=== PATIENT | male | born 1965 | race Caucasian/White ===

== ENCOUNTER 2017-01-11 19:55 | Emergency (ER) | payer OTHER ==
--- NOTE | 2017-01-11 20:36 | C.PDOC ---
History Of Present Illness 51 y/o male c/o abdominal pain, worsening for the last 10 days. Denies fever, chills, nausea, vomiting. Patient reports history of non insulin dependent diabetes. Describes pain as dull, aching, non-radiating, 4/10 discomfort. Time Seen by Provider: 01/11/17 20:36 Chief Complaint (Nursing): Abdominal Pain History Per: Patient History/Exam Limitations: no limitations Onset/Duration Of Symptoms: Days Current Symptoms Are (Timing): Worse Pain Scale Rating Of: 4 Location Of Pain/Discomfort: Diffuse Radiation Of Pain To:: None Quality Of Discomfort: Dull, Aching Associated Symptoms: denies: Fever, Chills, Nausea, Vomiting Recent travel outside of the [place]: No Past Medical History Reviewed: Historical Data, Nursing Documentation, Vital Signs Vital Signs: Last Vital Signs Temp 97.7 F 01/11/17 22:05 Pulse 50 L 01/11/17 22:05 Resp 16 01/11/17 22:05 BP 106/68 01/11/17 22:05 Pulse Ox 98 01/11/17 22:05 - Medical History PMH: No Chronic Diseases Family History: States: Unknown Family Hx - Social History Hx Alcohol Use: Yes Hx Substance Use: No - Immunization History Hx Tetanus Toxoid Vaccination: No Hx Influenza Vaccination: No Hx Pneumococcal Vaccination: No Review Of Systems Constitutional: Negative for: Fever, Chills Respiratory: Negative for: Cough Gastrointestinal: Positive for: Abdominal Pain. Negative for: Nausea, Vomiting Genitourinary: Negative for: Dysuria Skin: Negative for: Rash Physical Exam - Physical Exam Appears: Non-toxic, No Acute Distress Skin: Warm, Dry Oral Mucosa: Moist Chest: Symmetrical Cardiovascular: Rhythm Regular Respiratory: No Rales, No Rhonchi, No Wheezing Gastrointestinal/Abdominal: Soft, No Tenderness, Other (tympanic to percussion) Back: No CVA Tenderness Extremity: Normal ROM, Capillary Refill (< 2 sec.) Neurological/Psych: Oriented x3, Normal Speech, Normal Cognition ED Course And Treatment - Laboratory Results Result Diagrams: 01/11/17 20:50 01/11/17 20:50 ECG: Interpreted By Me, Viewed By Me ECG Rhythm: Sinus Bradycardia (48), Nonspecific Changes O2 Sat by Pulse Oximetry: 97 (RA) Pulse Ox Interpretation: Normal Progress Note: Pepcid, labs, fluids. Reevaluation Time: 22:13 Reassessment Condition: Improved Medical Decision Making Medical Decision Making: Upon provider reevaluation patient is feeling better, is medically stable, and requires no further treatment in the ED at this time. Patient will be discharged home with Rx for Bentyl. Counseling was provided and all questions were answered regarding diagnosis and need for follow up with Ankur. There is agreement to discharge plan. Return if symptoms persist or worsen. Disposition Counseled Patient/Family Regarding: Studies Performed, Diagnosis, Need For Followup, Rx Given - Disposition Referrals: Jose Eduardo Ribeiro MD [Staff Provider] - Disposition: HOME/ ROUTINE Disposition Time: 20:36 Condition: FAIR Prescriptions: Dicyclomine [Bentyl] 10 mg PO QID #30 cap - Clinical Impression Clinical Impression: Abdominal colic - Scribe Statement The provider has reviewed the documentation as recorded by the Neidaibpavithra Lazaro Provider Scribe Attestation: All medical record entries made by the Scribe were at my direction and personally dictated by me. I have reviewed the chart and agree that the record accurately reflects my personal performance of the history, physical exam, medical decision making, and the department course for this patient. I have also personally directed, reviewed, and agree with the discharge instructions and disposition.
[2017-01-11] MEDS ORDERED: Sodium Chloride 0.9% 1,000 ML IV ONE (20:40)
[2017-01-11] MEDS ORDERED: Sodium Chloride 0.9% 1,000 ML ONE (20:46)
[2017-01-11 21:04] LABS: CHLORIDE 99 mmol/L (98-107); POTASSIUM 4.2 mmol/L (3.6-5.2); SODIUM 141 mmol/L (132-148)
[2017-01-11 21:06] LABS: ALB/GLOB RATIO 1.5 (1.0-2.1); ALKALINE PHOSPHATASE 51 U/L (38-126); AST/SGOT 30 U/L (17-59); BILIRUBIN,TOTAL 0.6 mg/dL (0.2-1.3); BLOOD UREA NITROGEN 16 mg/dL (9-20); CARBON DIOXIDE 27 mmol/L (22-30); GFR AFRICAN-AMERICAN > 60; TOTAL PROTEIN 7.2 g/dL (6.3-8.3)
[2017-01-11 21:07] LABS: ALT/SGPT 21 U/L (21-72); CALCIUM 9.1 mg/dl (8.6-10.4); GLUCOSE,RANDOM 87 mg/dL (75-110)
[2017-01-11 21:08] LABS: BASO # 0.1 K/uL (0.0-0.2); BASO % 1.4 % (0.0-2.0); EOS # 0.2 K/uL (0.0-0.7); EOS % 4.4 % (0.0-4.0); LYMPH # 2.7 K/uL (1.0-4.3); MEAN CELL VOLUME 91.2 fL (80.0-94.0); MEAN CORPUSCULAR HGB CONC 32.9 g/dL (33.0-37.0); MEAN PLATELET VOLUME 8.3 fL (7.2-11.7); MONO # 0.5 K/uL (0.0-0.8); MONO % 8.6 % (0.0-10.0); RED CELL DISTRIBUTION WIDTH 12.9 % (11.5-14.5); WHITE BLOOD COUNT 5.5 K/uL (4.8-10.8)
[2017-01-11 21:13] LABS: RBC URINE < 1 /hpf (0-3); URINE BACTERIA OCC (<OCC); URINE BILIRUBIN NEGATIVE (NEGATIVE); URINE BLOOD NEGATIVE (NEGATIVE); URINE COLOR Yellow (YELLOW); URINE GLUCOSE (UA) NORMAL (Normal); URINE KETONE NEGATIVE (NEGATIVE); URINE LEUKOCYTE ESTERASE TRACE Leu/uL (Negative); URINE PROTEIN NEGATIVE (NEGATIVE); URINE UROBILINOGEN NORMAL mg/dL (0.2-1.0); WBC URINE 4 /hpf (0-5)
[2017-01-11 21:17] LABS: INR 1.1
[2017-01-11 22:05] VITALS: BP 106/68; TEMP 97.7
[2017-01-11 22:32] VITALS: PULSE 60; RESP 19; O2SAT 98
--- NOTE | 2017-01-12 12:58 | CARD ---
APPROVED REPORT EKG Measurement Heart [id number] NM [id number] [id number] <Conclusion> Sinus bradycardia Otherwise normal ECG
== END 2017-01-11 22:31 | disposition home or self-care (01) ==
LOC: C.ER 19:55
DX: R10.84 Generalized abdominal pain (principal)
CPT/HCPCS: 80053; 81001; 82009; 83690; 85025; 85610; 85730; 93005; 96361; 96374; 99285; J7040

== ENCOUNTER 2017-09-16 02:24 | Day surgery (SDC) | payer OTHER ==
[2017-09-16] MEDS ORDERED: Sodium Chloride 0.9% 1,000 ML IV STA ×2 (02:57→02:58)
--- NOTE | 2017-09-16 03:00 | C.PDOC ---
History Of Present Illness 52yo male, presents to ED with complaints of abdominal pain, present since 8pm last night. Patient reports associated nausea and dizziness. Of note, patient states he has an umbilical hernia and was advised by his PCP to visit a surgeon 1 month ago; patient states he has not followed up with a surgeon. He denies any vomiting. No other medical complaints. Time Seen by Provider: 09/16/17 02:41 Chief Complaint (Nursing): Abdominal Pain History Per: Patient History/Exam Limitations: no limitations Onset/Duration Of Symptoms: Hrs Current Symptoms Are (Timing): Still Present Location Of Pain/Discomfort: Periumbilical Quality Of Discomfort: "Pain" Associated Symptoms: Nausea. denies: Vomiting Past Medical History Reviewed: Historical Data, Nursing Documentation, Vital Signs Vital Signs: Last Vital Signs Temp 98.2 F 09/16/17 02:32 Pulse 63 09/16/17 02:32 Resp 20 09/16/17 02:32 BP 114/69 09/16/17 02:32 Pulse Ox 95 09/16/17 05:27 - Medical History PMH: Diabetes Family History: States: Unknown Family Hx - Social History Hx Alcohol Use: Yes Hx Substance Use: No - Immunization History Hx Tetanus Toxoid Vaccination: No Hx Influenza Vaccination: No Hx Pneumococcal Vaccination: No Review Of Systems Except As Marked, All Systems Reviewed And Found Negative. Gastrointestinal: Positive for: Nausea, Abdominal Pain. Negative for: Vomiting Neurological: Positive for: Dizziness Physical Exam - Physical Exam Appears: Non-toxic, Other (uncomfortable) Skin: Normal Color Neck: Supple Cardiovascular: Rhythm Regular Respiratory: Normal Breath Sounds Gastrointestinal/Abdominal: Soft, Tenderness (diffuse periumbilical tenderness) , No Hernia Neurological/Psych: Oriented x3, Normal Speech, Normal Cognition ED Course And Treatment - Laboratory Results Result Diagrams: 09/16/17 03:07 09/16/17 03:07 O2 Sat by Pulse Oximetry: 95 Medical Decision Making Medical Decision Making: Plan: -- Amylase -- CBC -- CMP -- IV Fluids -- CT Abdomen Pelvis w/ PO & IV Contrast Time: 525 EXAM: CT Abdomen and Pelvis With Intravenous Contrast CLINICAL HISTORY: 52 years old, male; Pain; Abdominal pain; Additional info: Hernia TECHNIQUE: Axial computed tomography images of the abdomen and pelvis with intravenous contrast. All CT scans at this facility use one or more dose reduction techniques, viz.: automated exposure control; ma/kV adjustment per patient size (including targeted exams where dose is matched to indication; i.e. head); or iterative reconstruction technique. 722 images are submitted. Oral contrast was administered. Coronal and sagittal reformatted images were created and reviewed. CONTRAST: 100 mL of [id number] administered intravenously. COMPARISON: No relevant prior studies available. FINDINGS: Lower thorax: Bibasilar lingular nonspecific infiltrates are present, consistent with atelectasis or pneumonia. Small hiatal hernia. ABDOMEN: Liver: Enlarged fatty liver. Gallbladder and bile ducts: Contracted gallbladder with mild gallbladder wall, as. Pancreas: Unremarkable. No mass. No ductal dilation. Spleen: Unremarkable. No splenomegaly. Adrenals: Unremarkable. No mass. Kidneys and ureters: Right renal cysts. Bilateral perinephric scarring may be a sequela of infection, inflammation or aging. No hydronephrosis. Stomach and bowel: Diverticulosis. Moderate amount of stool in the colon. No obstruction. No mucosal thickening. Appendix: There is prominent appendix measuring 1.3 cm with surrounding inflammatory change without appendicolith representing early acute appendicitis. PELVIS: Bladder: Partially distended bladder with bladder wall thickening. Correlation with urinalysis is recommended only if clinical cystitis is suspected. Reproductive: Enlarged prostate with calcifications. ABDOMEN and PELVIS: Intraperitoneal space: Unremarkable. No free air. No significant fluid collection. Bones/joints: No acute fracture. No dislocation. Soft tissues: Unremarkable. Vasculature: Unremarkable. No abdominal aortic aneurysm. Lymph nodes: Unremarkable. No enlarged lymph nodes. IMPRESSION: 1. There is prominent appendix measuring 1.3 cm with surrounding inflammatory change without appendicolith representing early acute appendicitis. Disposition - Disposition Disposition: HOSPITALIZED Disposition Time: 05:35 Condition: STABLE Forms: [facility] ([place] Citizen) - Clinical Impression Clinical Impression: Appendicitis - Scribe Statement The provider has reviewed the documentation as recorded by the Carley Edouard Provider Attestation: All medical record entries made by the Carley were at my direction and personally dictated by me. I have reviewed the chart and agree that the record accurately reflects my personal performance of the history, physical exam, medical decision making, and the department course for this patient. I have also personally directed, reviewed, and agree with the discharge instructions and disposition.
[2017-09-16] MEDS ORDERED: Sodium Chloride 0.9% 1,000 ML ONE (03:09)
[2017-09-16] MEDS ORDERED: Iohexol 240 (50 ml) ONE (03:10)
[2017-09-16 03:12] LABS: BASO # 0.1 K/uL (0.0-0.2); BASO % 0.7 % (0.0-2.0); EOS # 0.1 K/uL (0.0-0.7); EOS % 1.1 % (0.0-4.0); HEMATOCRIT 45.2 % (35.0-51.0); LYMPH # 1.1 K/uL (1.0-4.3); LYMPH % 9.3 % (20.0-40.0); MEAN CELL VOLUME 91.3 fL (80.0-94.0); MEAN CORPUSCULAR HEMOGLOBIN 31.1 pg (27.0-31.0); MEAN CORPUSCULAR HGB CONC 34.1 g/dL (33.0-37.0); MEAN PLATELET VOLUME 8.1 fL (7.2-11.7); MONO # 0.6 K/uL (0.0-0.8); MONO % 5.7 % (0.0-10.0); PLATELET COUNT 210 K/uL (130-400); RED CELL DISTRIBUTION WIDTH 12.6 % (11.5-14.5); WHITE BLOOD COUNT 11.3 K/uL (4.8-10.8)
[2017-09-16 03:30] LABS: ALKALINE PHOSPHATASE 61 U/L (38-126); ALT/SGPT 46 U/L (21-72); AMYLASE 55 U/L (30-110); AST/SGOT 27 U/L (17-59); BILIRUBIN,TOTAL 0.9 mg/dL (0.2-1.3); BLOOD UREA NITROGEN 14 mg/dL (9-20); CALCIUM 8.6 mg/dl (8.6-10.4); CARBON DIOXIDE 30 mmol/L (22-30); CHLORIDE 100 mmol/L (98-107); GFR AFRICAN-AMERICAN > 60; GLUCOSE,RANDOM 206 mg/dL (75-110); POTASSIUM 3.8 mmol/L (3.6-5.2); SODIUM 138 mmol/L (132-148); TOTAL PROTEIN 8.1 g/dL (6.3-8.3)
[2017-09-16 03:52] LABS: EOSINOPHIL 1 % (0-4); NEUTROPHIL 83 % (50-75); TOTAL CELLS COUNTED 100
[2017-09-16] MEDS ORDERED: Iodixanol 320 MG/ML 100 ML BOTTLE IV ONE (04:32)
--- NOTE | 2017-09-16 05:22 | CT ---
EXAM: CT Abdomen and Pelvis With Intravenous Contrast CLINICAL HISTORY: 52 years old, male; Pain; Abdominal pain; Additional info: Hernia TECHNIQUE: Axial computed tomography images of the abdomen and pelvis with intravenous contrast. All CT scans at this facility use one or more dose reduction techniques, viz.: automated exposure control; ma/kV adjustment per patient size (including targeted exams where dose is matched to indication; i.e. head); or iterative reconstruction technique. 722 images are submitted. Oral contrast was administered. Coronal and sagittal reformatted images were created and reviewed. CONTRAST: 100 mL of [id number] administered intravenously. COMPARISON: No relevant prior studies available. FINDINGS: Lower thorax: Bibasilar lingular nonspecific infiltrates are present, consistent with atelectasis or pneumonia. Small hiatal hernia. ABDOMEN: Liver: Enlarged fatty liver. Gallbladder and bile ducts: Contracted gallbladder with mild gallbladder wall, as. Pancreas: Unremarkable. No mass. No ductal dilation. Spleen: Unremarkable. No splenomegaly. Adrenals: Unremarkable. No mass. Kidneys and ureters: Right renal cysts. Bilateral perinephric scarring may be a sequela of infection, inflammation or aging. No hydronephrosis. Stomach and bowel: Diverticulosis. Moderate amount of stool in the colon. No obstruction. No mucosal thickening. Appendix: There is prominent appendix measuring 1.3 cm with surrounding inflammatory change without appendicolith representing early acute appendicitis. PELVIS: Bladder: Partially distended bladder with bladder wall thickening. Correlation with urinalysis is recommended only if clinical cystitis is suspected. Reproductive: Enlarged prostate with calcifications. ABDOMEN and PELVIS: Intraperitoneal space: Unremarkable. No free air. No significant fluid collection. Bones/joints: No acute fracture. No dislocation. Soft tissues: Unremarkable. Vasculature: Unremarkable. No abdominal aortic aneurysm. Lymph nodes: Unremarkable. No enlarged lymph nodes. IMPRESSION: 1. There is prominent appendix measuring 1.3 cm with surrounding inflammatory change without appendicolith representing early acute appendicitis.
[2017-09-16] MEDS ORDERED: Piperacillin/Tazobact 3.375 GM in Sodium Chloride 100 ML IVPB STA (05:30)
[2017-09-16] MEDS ORDERED: Piperacillin/Tazobact 3.375 gm 100 ML IVPB ONE (06:02)
--- NOTE | 2017-09-16 06:19 | CP.PCM.CON ---
History of Present Illness - History of Present Illness History of Present Illness: HISTORY AND PHYSICAL General Surgery Consult Note for Dr. Barkley This is a 52M with a PMH of DM and no PSH presents with abdominal pain that began at 8pm. He thought it would be settled by eating however this mad his abdominal pain worse. It started off generalized and then localized to the lower abdomen. He reports he had an episode of abdominal pain years ago. He reports that he was diagnosed with an umbilical hernia earlier this year and thought that it was the cause of his pain. In the ED he had a CT scan that was significant for an early appendicitis with inflammatory changes. He denies any fevers, chills, chest pain or SOB. PMH: DM PSH: none ALL: None Social:Denies Tobacco, ETOH, or drugs Review of Systems - Constitutional Constitutional: absent: Anorexia, Chills - EENT Eyes: absent: Blind Spots - Cardiovascular Cardiovascular: absent: Chest Pain, Dyspnea - Respiratory Respiratory: absent: Cough, Dyspnea, Dyspnea on Exertion - Gastrointestinal Gastrointestinal: Abdominal Pain. absent: Bloating, Diarrhea, Nausea, Vomiting - Neurological Neurological: absent: Syncope - Endocrine Endocrine: absent: Increase in Ring/Shoe/Hat Size Past Patient History - Past Social History Smoking Status: Never Smoked - ENDOCRINE/METABOLIC Hx Diabetes Mellitus Type 1: Yes - PSYCHIATRIC Hx Substance Use: No Meds Allergies/Adverse Reactions: Allergies Allergy/AdvReac Type Severity Reaction Status Date / Time No Known Allergies Allergy Verified 09/16/17 02:30 Physical Exam - Constitutional Appears: Non-toxic, No Acute Distress - Head Exam Head Exam: ATRAUMATIC, NORMOCEPHALIC - Eye Exam Eye Exam: EOMI - ENT Exam ENT Exam: Mucous Membranes Moist - Respiratory Exam Respiratory Exam: NORMAL BREATHING PATTERN - Cardiovascular Exam Cardiovascular Exam: REGULAR RHYTHM - GI/Abdominal Exam GI & Abdominal Exam: Hernia, Soft, Tenderness. absent: Distended, Guarding, Rigid - Neurological Exam Neurological exam: Alert, Oriented x3 - Psychiatric Exam Psychiatric exam: Normal Affect, Normal Mood - Skin Skin Exam: Dry, Intact Results - Vital Signs Recent Vital Signs: Last Vital Signs Temp 98.2 F 09/16/17 02:32 Pulse 63 09/16/17 02:32 Resp 20 09/16/17 02:32 BP 114/69 09/16/17 02:32 Pulse Ox 95 09/16/17 05:34 - Labs Result Diagrams: 09/17/17 07:57 09/17/17 07:57 Labs: Laboratory Results - last 24 hr 09/16/17 09/16/17 03:07 03:07 WBC 11.3 H D RBC 4.95 Hgb 15.4 Hct 45.2 MCV 91.3 MCH 31.1 H MCHC 34.1 RDW 12.6 Plt Count 210 MPV 8.1 Neut % (Auto) 83.2 H Lymph % (Auto) 9.3 L [place] % (Auto) 5.7 Eos % (Auto) 1.1 Baso % (Auto) 0.7 Neut # 9.4 H Lymph # 1.1 [place] # 0.6 Eos # 0.1 Baso # 0.1 Neutrophils % (Manual) 83 H Band Neutrophils % 1 Lymphocytes % (Manual) 9 L Monocytes % (Manual) 6 Eosinophils % (Manual) 1 Platelet Estimate Normal Sodium 138 Potassium 3.8 Chloride 100 Carbon Dioxide 30 Anion Gap 11 BUN 14 Creatinine 0.8 Est GFR ( Amer) > 60 Est GFR (Non-Af Amer) > 60 Random Glucose 206 H Calcium 8.6 Total Bilirubin 0.9 AST 27 ALT 46 Alkaline Phosphatase 61 Total Protein 8.1 Albumin 4.1 Globulin 4.0 H Albumin/Globulin Ratio 1.0 Amylase 55 Assessment & Plan - Assessment and Plan (Free Text) Assessment: This is a 52M diabetic presenting with an acute appendicitis NPO IVF EKG CXR Coags ABX OR Discuss with Dr. Rubia Elias PGY2
[2017-09-16] MEDS ORDERED: Sodium Chloride 0.9% 1,000 ML IV SCH (06:30)
[2017-09-16 06:57] LABS: INR 1.1
--- NOTE | 2017-09-16 07:43 | RAD ---
Chest x-ray single frontal view History: Preoperative evaluation. Comparison: None available. Findings: Bibasilar breast shadows. No focal infiltrate or effusion. Heart size within normal limits. Degenerative changes in the spine. Impression: No focal infiltrate or effusion.
[2017-09-16] MEDS: metroNIDAZOLE IV 500 mg/100 ml 500 MG/100 ML BAG IVPB SCH ×2 (08:36→15:32)
[2017-09-16] MEDS ORDERED: Bupivacaine-Epi 0.5%-1:200,000 PF Inj IJ ONE (10:47)
[2017-09-16] MEDS ORDERED: Lactated Ringer's 1,000 ML IV ONE (12:53)
[2017-09-16] MEDS ORDERED: Propofol 10 mg/ml Inj (20 ML) ONE (12:55)
[2017-09-16] MEDS ORDERED: Etomidate 20 mg/10ml Inj IV ONE (13:16)
[2017-09-16] MEDS ORDERED: ePHEDrine 50 mg/ml Inj ONE (13:19)
[2017-09-16] MEDS ORDERED: HYDROmorphone 0.5 mg/0.5 ml ISec IVP PRN (13:29)
[2017-09-16] MEDS ORDERED: Esmolol 100 mg/10ml Inj IV ONE (13:40)
[2017-09-16] MEDS ORDERED: Neostigmine Methylsulfate 3mg/3ml Syringe IV ONE (13:44)
--- NOTE | 2017-09-16 14:01 | PCM.SURG1 ---
Surgeon's Initial Post Op Note - Surgeon's Notes Surgeon: Dr. Barkley Public Health Outreach Worker: Dr. Baugh PGY1 Type of Anesthesia: General Endo, Local Anesthesia Administered By: Dr. Bethea Pre-Operative Diagnosis: Appendicitis. Umbilical Hernia Operative Findings: See operative report Post-Operative Diagnosis: Acute appendicitis. Umbilical Hernia Operation Performed: Laparascopic Appendectomy; Umbilical Hernia repair Specimen/Specimens Removed: Appendix; Hernia Sac Estimated Blood Loss: EBL {In ML}: 10 Blood Products Given: N/A Drains Used: No Drains Post-Op Condition: Good Date of Surgery/Procedure: 09/16/17 Time of Surgery/Procedure: 14:01
[2017-09-16] MEDS ORDERED: Sodium Chloride 0.9% 1,000 ML IV ONE (15:36)
[2017-09-16] MEDS: Lactated Ringer's 1,000 ML IV SCH (17:45)
[2017-09-16] MEDS: Benzocaine/Menthol (Cepacol) Lozenge MT PRN (18:14)
[2017-09-16] MEDS: Piperacill/Tazo 3.375gm in Dex 3.375 GM/50 ML BAG IVPB SCH ×2 (18:14→22:42)
[2017-09-16] MEDS: HYDROmorphone 0.5 mg/0.5 ml ISec IVP PRN (18:21)
[2017-09-17 01:18] VITALS: BP 145/78; PULSE 83; RESP 20; TEMP 98.9; O2SAT 95
[2017-09-17] MEDS: HYDROmorphone 0.5 mg/0.5 ml ISec IVP PRN ×2 (01:42→10:23)
[2017-09-17] MEDS: Lactated Ringer's 1,000 ML IV SCH (05:00)
[2017-09-17] MEDS: Piperacill/Tazo 3.375gm in Dex 3.375 GM/50 ML BAG IVPB SCH ×2 (05:01→10:42)
[2017-09-17 08:18] LABS: BASO # 0.1 K/uL (0.0-0.2); EOS # 0.1 K/uL (0.0-0.7); EOS % 1.6 % (0.0-4.0); HEMATOCRIT 40.7 % (35.0-51.0); LYMPH # 2.1 K/uL (1.0-4.3); LYMPH % 24.9 % (20.0-40.0); MEAN CELL VOLUME 91.3 fL (80.0-94.0); MEAN CORPUSCULAR HEMOGLOBIN 31.4 pg (27.0-31.0); MEAN CORPUSCULAR HGB CONC 34.4 g/dL (33.0-37.0); MEAN PLATELET VOLUME 7.9 fL (7.2-11.7); MONO # 0.7 K/uL (0.0-0.8); MONO % 8.8 % (0.0-10.0); RED CELL DISTRIBUTION WIDTH 12.8 % (11.5-14.5); WHITE BLOOD COUNT 8.4 K/uL (4.8-10.8)
[2017-09-17 08:45] LABS: ALB/GLOB RATIO 1.4 (1.0-2.1); ALKALINE PHOSPHATASE 42 U/L (38-126); ALT/SGPT 38 U/L (21-72); AST/SGOT 20 U/L (17-59); BILIRUBIN,TOTAL 1.8 mg/dL (0.2-1.3); BLOOD UREA NITROGEN 10 mg/dL (9-20); CALCIUM 7.6 mg/dl (8.6-10.4); CARBON DIOXIDE 31 mmol/L (22-30); CHLORIDE 101 mmol/L (98-107); GFR AFRICAN-AMERICAN > 60; GLUCOSE,RANDOM 125 mg/dL (75-110); POTASSIUM 3.6 mmol/L (3.6-5.2); SODIUM 138 mmol/L (132-148)
[2017-09-17 08:53] LABS: TOTAL PROTEIN 7.1 g/dL (6.3-8.3)
--- NOTE | 2017-09-17 09:06 | OP ---
PROCEDURE DATE: 09/16/2017 PREOPERATIVE DIAGNOSIS: Acute appendicitis. POSTOPERATIVE DIAGNOSIS: Acute appendicitis. PROCEDURE PERFORMED: Laparoscopic appendectomy. FINDINGS: The appendix is markedly inflamed, was adherent at the very elongated tip. There was no gross perforation. There was no fluid in the peritoneal cavity. There was also an incarcerated supraumbilical hernia. DESCRIPTION OF PROCEDURE: Under general anesthesia, patient was prepared and draped in the usual sterile fashion. Marcaine with epinephrine was injected in the supraumbilical area, where the hernia was. The shaft was then dissected free, dissecting above the skin and going all the way down into the neck. The incarcerated omental tissue was then excised secondary to peritoneal cavity with no bleeding. The opening in the fascia was about 1 cm in diameter. This was utilized with the 12-mm trocar and then CO2 was insufflated. Under direct vision, a 5-mm suprapubic port and then a 5-mm left lower quadrant port was then inserted. The patient was placed in the Trendelenburg position and turned over towards the left side. The appendix was partially mobilized by dissecting the adhesions. The mesoappendix was then serially sealed with the stapler and cut and it was then transected with the aide of the same machine. The appendix with the mesoappendix was then placed in the EndoCatch and was extracted through the umbilical port. The area was irrigated with a large amount of saline solution. Irrigating fluid was suctioned out. No bleeding was noted at the end of this procedure. CO2 was allowed to escape from the peritoneal cavity, trocars removed, and the wound was closed in a routine fashion. Estimated blood loss was about 15 mL. No complications. Nima Barkley MD
[2017-09-17] MEDS ORDERED: HYDROmorphone 1 mg/ml ISec IVP PRN (10:14)
--- NOTE | 2017-09-17 10:26 | CP.PCM.DIS ---
Provider - Provider Date of Admission: 09/16/17 05:32 Attending physician: Nima Barkley MD Primary care physician: Dr. Barkley-General surgery Consults: None Time Spent in preparation of Discharge (in minutes): 35 Diagnosis - Discharge Diagnosis (1) S/P appendectomy Status: Acute (2) Umbilical hernia Status: Acute (3) History of umbilical hernia repair Status: Acute Hospital Course - Lab Results Lab Results: Most Recent Lab Values WBC 8.4 K/uL (4.8-10.8) 09/17/17 07:57 RBC 4.45 Mil/uL (4.40-5.90) 09/17/17 07:57 Hgb 14.0 g/dL (12.0-18.0) 09/17/17 07:57 Hct 40.7 % (35.0-51.0) 09/17/17 07:57 MCV 91.3 fL (80.0-94.0) 09/17/17 07:57 MCH 31.4 pg (27.0-31.0) H 09/17/17 07:57 MCHC 34.4 g/dL (33.0-37.0) 09/17/17 07:57 RDW 12.8 % (11.5-14.5) 09/17/17 07:57 Plt Count 186 K/uL (130-400) 09/17/17 07:57 MPV 7.9 fL (7.2-11.7) 09/17/17 07:57 Neut % (Auto) 63.7 % (50.0-75.0) 09/17/17 07:57 Lymph % (Auto) 24.9 % (20.0-40.0) 09/17/17 07:57 [place] % (Auto) 8.8 % (0.0-10.0) 09/17/17 07:57 Eos % (Auto) 1.6 % (0.0-4.0) 09/17/17 07:57 Baso % (Auto) 1.0 % (0.0-2.0) 09/17/17 07:57 Neut # 5.4 K/uL (1.8-7.0) 09/17/17 07:57 Lymph # 2.1 K/uL (1.0-4.3) 09/17/17 07:57 [place] # 0.7 K/uL (0.0-0.8) 09/17/17 07:57 Eos # 0.1 K/uL (0.0-0.7) 09/17/17 07:57 Baso # 0.1 K/uL (0.0-0.2) 09/17/17 07:57 Neutrophils % (Manual) 83 % (50-75) H 09/16/17 03:07 Band Neutrophils % 1 % (0-2) 09/16/17 03:07 Lymphocytes % (Manual) 9 % (20-40) L 09/16/17 03:07 Monocytes % (Manual) 6 % (0-10) 09/16/17 03:07 Eosinophils % (Manual) 1 % (0-4) 09/16/17 03:07 Platelet Estimate Normal (NORMAL) 09/16/17 03:07 PT 12.2 SECONDS (9.7-12.2) 09/16/17 06:45 INR 1.1 09/16/17 06:45 APTT 25 SECONDS (21-34) 09/16/17 06:45 Sodium 138 mmol/L (132-148) 09/17/17 07:57 Potassium 3.6 mmol/L (3.6-5.2) 09/17/17 07:57 Chloride 101 mmol/L (98-107) 09/17/17 07:57 Carbon Dioxide 31 mmol/L (22-30) H 09/17/17 07:57 Anion Gap 10 (10-20) 09/17/17 07:57 BUN 10 mg/dL (9-20) 09/17/17 07:57 Creatinine 1.0 mg/dL (0.8-1.5) 09/17/17 07:57 Est GFR ( Amer) > 60 09/17/17 07:57 Est GFR (Non-Af Amer) > 60 09/17/17 07:57 POC Glucose (mg/dL) 118 mg/dL (65-110) H 09/17/17 06:15 Random Glucose 125 mg/dL (75-110) H 09/17/17 07:57 Calcium 7.6 mg/dl (8.6-10.4) L 09/17/17 07:57 Total Bilirubin 1.8 mg/dL (0.2-1.3) H 09/17/17 07:57 AST 20 U/L (17-59) 09/17/17 07:57 ALT 38 U/L (21-72) 09/17/17 07:57 Alkaline Phosphatase 42 U/L (38-126) 09/17/17 07:57 Total Protein 7.1 g/dL (6.3-8.3) 09/17/17 07:57 Albumin 3.5 g/dL (3.5-5.0) 09/17/17 07:57 Globulin 2.5 gm/dL (2.2-3.9) 09/17/17 07:57 Albumin/Globulin Ratio 1.4 (1.0-2.1) 09/17/17 07:57 Amylase 55 U/L (30-110) 09/16/17 03:07 - Hospital Course Hospital Course: 52M w/acute appendicitis admitted to general surgery service. Pt taken to OR for laparoscopic appendectomy with umbilical hernia repair. Pt observed overnight post op, doing well, voiding, tolerating diet, pain well controlled. Pt stable and ready for discharge home. Diagnoses: Acute appendicitis Laparoscopic appendectomy Umbilical hernia Umbilical hernia repair - Date & Time of H&P Date of H&P: 09/16/17 Time of H&P: 06:13 Discharge Exam - Head Exam Head Exam: ATRAUMATIC, NORMAL INSPECTION, NORMOCEPHALIC - Eye Exam Eye Exam: EOMI, Normal appearance Pupil Exam: NORMAL ACCOMODATION - ENT Exam ENT Exam: Mucous Membranes Moist, Normal Exam - Neck Exam Neck exam: Full Rom, Normal Inspection - Respiratory Exam Respiratory Exam: NORMAL BREATHING PATTERN, UNREMARKABLE - Cardiovascular Exam Cardiovascular Exam: REGULAR RHYTHM, +S1, +S2 - GI/Abdominal Exam GI & Abdominal Exam: Soft, Tenderness (over surgical incision sites), Unremarkable. absent: Distended, Firm, Guarding, Rigid - Extremities Exam Extremities exam: normal inspection - Neurological Exam Neurological exam: Alert, CN II-XII Intact, Oriented x3 - Psychiatric Exam Psychiatric exam: Normal Affect, Normal Mood - Skin Skin Exam: Dry, Intact, Normal Color, Warm Discharge Plan - Follow Up Plan Condition: STABLE Disposition: HOME/ ROUTINE Instructions: Appendicitis (DC), Laparoscopic Appendectomy (DC) Additional Instructions: Please follow up with Dr. Barkley in 1-2 weeks- call his office for an appointment. OK to shower tomorrow. If you have large bandages over the surgical sites, you may remove these tomorrow before you shower. You have special tape or glue over the incisions sites- do not pull this off. You may shower with either, gently wash with soap and water, do not scrub. Do not sit in a bath or hot tub. You are being given a prescription for pain medications, these are very strong, do not drink alcohol or drive while taking this medication. If the medication is too strong, you may take Tylenol. If you start to have fevers, chills or excessive bleeding from your surgical sites, please return to the hospital. You may resume all home medications as written. You may resume a regular diet. Referrals: Nima Barkley MD [Staff Provider] -
[2017-09-17] MEDS ORDERED: HYDROmorphone 1 mg/ml ISec IVP ONE (10:30)
[2017-09-17] MEDS: Benzocaine/Menthol (Cepacol) Lozenge MT PRN (10:44)
--- NOTE | 2017-09-18 07:04 | CP.PCM.HP ---
History of Present Illness - History of Present Illness History of Present Illness: History of Present Illness: General Surgery Consult Note for Dr. Barkley This is a 52M with a PMH of DM and no PSH presents with abdominal pain that began at 8pm. He thought it would be settled by eating however this mad his abdominal pain worse. It started off generalized and then localized to the lower abdomen. He reports he had an episode of abdominal pain years ago. He reports that he was diagnosed with an umbilical hernia earlier this year and thought that it was the cause of his pain. In the ED he had a CT scan that was significant for an early appendicitis with inflammatory changes. He denies any fevers, chills, chest pain or SOB. PMH: DM PSH: none ALL: None Social:Denies Tobacco, ETOH, or drugs Review of Systems - Constitutional Constitutional: absent: Anorexia, Chills - EENT Eyes: absent: Blind Spots - Cardiovascular Cardiovascular: absent: Chest Pain, Dyspnea - Respiratory Respiratory: absent: Cough, Dyspnea, Dyspnea on Exertion - Gastrointestinal Gastrointestinal: Abdominal Pain. absent: Bloating, Diarrhea, Nausea, Vomiting - Neurological Neurological: absent: Syncope - Endocrine Endocrine: absent: Increase in Ring/Shoe/Hat Size Past Patient History - Past Social History Smoking Status: Never Smoked - ENDOCRINE/METABOLIC Hx Diabetes Mellitus Type 1: Yes - PSYCHIATRIC Hx Substance Use: No Meds Allergies/Adverse Reactions: Allergies Allergy/AdvReac Type Severity Reaction Status Date / Time No Known Allergies Allergy Verified 09/16/17 02:30 Physical Exam - Constitutional Appears: Non-toxic, No Acute Distress - Head Exam Head Exam: ATRAUMATIC, NORMOCEPHALIC - Eye Exam Eye Exam: EOMI - ENT Exam ENT Exam: Mucous Membranes Moist - Respiratory Exam Respiratory Exam: NORMAL BREATHING PATTERN - Cardiovascular Exam Cardiovascular Exam: REGULAR RHYTHM - GI/Abdominal Exam GI & Abdominal Exam: Hernia, Soft, Tenderness. absent: Distended, Guarding, Rigid - Neurological Exam Neurological exam: Alert, Oriented x3 - Psychiatric Exam Psychiatric exam: Normal Affect, Normal Mood - Skin Skin Exam: Dry, Intact Results - Vital Signs Recent Vital Signs: Last Vital Signs Temp 98.2 F 09/16/17 02:32 Pulse 63 09/16/17 02:32 Resp 20 09/16/17 02:32 BP 114/69 09/16/17 02:32 Pulse Ox 95 09/16/17 05:34 - Labs Result Diagrams: 09/16/17 03:07 09/16/17 03:07 Labs: Laboratory Results - last 24 hr 09/16/17 09/16/17 03:07 03:07 WBC 11.3 H D RBC 4.95 Hgb 15.4 Hct 45.2 MCV 91.3 MCH 31.1 H MCHC 34.1 RDW 12.6 Plt Count 210 MPV 8.1 Neut % (Auto) 83.2 H Lymph % (Auto) 9.3 L Mitchell % (Auto) 5.7 Eos % (Auto) 1.1 Baso % (Auto) 0.7 Neut # 9.4 H Lymph # 1.1 Mitchell # 0.6 Eos # 0.1 Baso # 0.1 Neutrophils % (Manual) 83 H Band Neutrophils % 1 Lymphocytes % (Manual) 9 L Monocytes % (Manual) 6 Eosinophils % (Manual) 1 Platelet Estimate Normal Sodium 138 Potassium 3.8 Chloride 100 Carbon Dioxide 30 Anion Gap 11 BUN 14 Creatinine 0.8 Est GFR ( Amer) > 60 Est GFR (Non-Af Amer) > 60 Random Glucose 206 H Calcium 8.6 Total Bilirubin 0.9 AST 27 ALT 46 Alkaline Phosphatase 61 Total Protein 8.1 Albumin 4.1 Globulin 4.0 H Albumin/Globulin Ratio 1.0 Amylase 55 Assessment & Plan - Assessment and Plan (Free Text) Assessment: This is a 52M diabetic presenting with an acute appendicitis NPO IVF EKG CXR Coags ABX possible OR Discuss with Dr. Rubia Elias PGY2 Present on Admission - Present on Admission Any Indicators Present on Admission: No Past Patient History - Past Medical History & Family History Past Medical History?: Yes - Past Social History Smoking Status: Never Smoked - CARDIAC Hx Cardiac Disorders: No - PULMONARY Hx Respiratory Disorders: No - NEUROLOGICAL Hx Neurological Disorder: No - HEENT Hx HEENT Problems: No - RENAL Hx Chronic Kidney Disease: No - ENDOCRINE/METABOLIC Hx Diabetes Mellitus Type 1: Yes - HEMATOLOGICAL/ONCOLOGICAL Hx Blood Disorders: No - INTEGUMENTARY Hx Dermatological Problems: No - MUSCULOSKELETAL/RHEUMATOLOGICAL Hx Musculoskeletal Disorders: No Hx Falls: No - GASTROINTESTINAL Hx Gastrointestinal Disorders: No - GENITOURINARY/GYNECOLOGICAL Hx Genitourinary Disorders: Yes Hx Prostate Problems: Yes - PSYCHIATRIC Hx Substance Use: No - SURGICAL HISTORY Hx Surgeries: No - ANESTHESIA Hx Anesthesia: No Hx Anesthesia Reactions: No Hx Malignant Hyperthermia: No Has any member of the family had a problem w/ anesthesia?: No Meds Allergies/Adverse Reactions: Allergies Allergy/AdvReac Type Severity Reaction Status Date / Time No Known Allergies Allergy Verified 09/16/17 02:30 Results - Vital Signs Recent Vital Signs: Last Vital Signs Temp 98.9 F 09/16/17 23:20 Pulse 83 09/16/17 23:20 Resp 20 09/16/17 23:20 BP 145/78 09/16/17 23:20 Pulse Ox 95 09/16/17 23:20 - Labs Result Diagrams: 09/17/17 07:57 09/17/17 07:57 Labs: Laboratory Results - last 24 hr 09/17/17 09/17/17 09/17/17 07:57 07:57 11:43 WBC 8.4 RBC 4.45 Hgb 14.0 Hct 40.7 MCV 91.3 MCH 31.4 H MCHC 34.4 RDW 12.8 Plt Count 186 MPV 7.9 Neut % (Auto) 63.7 Lymph % (Auto) 24.9 Mitchell % (Auto) 8.8 Eos % (Auto) 1.6 Baso % (Auto) 1.0 Neut # 5.4 Lymph # 2.1 Mitchell # 0.7 Eos # 0.1 Baso # 0.1 Sodium 138 Potassium 3.6 Chloride 101 Carbon Dioxide 31 H Anion Gap 10 BUN 10 Creatinine 1.0 Est GFR ( Amer) > 60 Est GFR (Non-Af Amer) > 60 POC Glucose (mg/dL) 154 H Random Glucose 125 H Calcium 7.6 L Total Bilirubin 1.8 H AST 20 ALT 38 Alkaline Phosphatase 42 Total Protein 7.1 Albumin 3.5 Globulin 2.5 Albumin/Globulin Ratio 1.4 Assessment & Plan - Date & Time Date: 09/16/17 Time: 05:00
== END 2017-09-17 11:58 | disposition home or self-care (01) ==
LOC: C.ER 02:24 → C.SDS 05:32 → C.9E 05:32 → UNDOADMIN 05:32 → C.9E 06:46 → C.6T 06:46 → C.SDS 09-17 11:58 → UNDODISIN 09-17 14:08
PROVIDERS: ATTEND Surgery
DX: K35.80 Unspecified acute appendicitis (principal); K42.9 Umbilical hernia without obstruction or gangrene
CPT/HCPCS: 36415; 44970; 49653; 71010; 74177; 80053; 82150; 82948; 85025; 85610; 85730; 88302; 88304; 96361; 96365; 96375; 99285; J1170; J2001; J2270; J2405; J2543; J2704; J2710; J3010; J7040; J7050; J7120; Q9967